=== PATIENT | female | born 1995 | race Caucasian/White ===

== ENCOUNTER 2017-02-03 16:49 | Emergency (ER) | payer OTHER ==
--- NOTE | 2017-02-03 17:28 | UC ---
Knee Pain HPI - HPI Summary HPI Summary: 6 days of right knee pain, without a history of trauma. Had pain for 2 days, then was aware of swelling, which has decreased since she began use of ice. Has been using a crutch for support. Has pain at rest, as well as with weight bearing. Going downstairs is painful. Has a past history of left knee patellar dislocation 3 years ago. Remote history of left ankle fracture. 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 NO fever, rash, or other symptoms of illness. 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 - here with mom Hx Last Menstrual Period: 01/23/17 Onset/Duration: Gradual Onset, Lasting Days - 6 Severity Initially: Moderate Severity Currently: Moderate Pain Intensity: 8 Pain Scale Used: 0-10 Numeric Character: Aching Aggravating Factor(s): Movement, Weight Bearing, Prolonged Standing, Stairs Alleviating Factor(s): Rest, Cold Associated Signs And Symptoms: Positive: Swelling Able to Bear Weight: Yes - Allergies/Home Medications Allergies/Adverse Reactions: Allergies Allergy/AdvReac Type Severity Reaction Status Date / Time Azithromycin [From Zithromax] Allergy Hives Verified 02/03/17 17:24 Home Medications: Home Medications Bisoprolol Fumarate [Bisoprolol Fumarate-] 2.5 mg PO BEDTIME 02/03/17 [History Confirmed 02/03/17] Dicyclomine HCl 20 mg PO AC PRN 02/03/17 [History Confirmed 02/03/17] Lisinopril/HCTZ 10/12.5(NF) [Zestoretic 10/12.5(NF)] 1 tab PO DAILY 02/03/17 [ History Confirmed 02/03/17] Loratadine [Claritin 10 MG CAP] 10 mg PO DAILY 02/03/17 [History Confirmed 02/03] Omeprazole 40 mg PO DAILY 02/03/17 [History Confirmed 02/03/17] Sertraline* [Zoloft*] 50 mg PO DAILY 02/03/17 [History Confirmed 02/03/17] traZODone TAB* [Desyrel TAB*] 50 mg PO BEDTIME PRN 02/03/17 [History Confirmed 02/03/17] PMH/Surg Hx/FS Hx/Imm Hx - Additional Past Medical History Additional PMH: obesity Cardiovascular History Of: Reports: Hypertension Respiratory History Of: Reports: Asthma - INFANCY - Surgical History Surgical History: Yes Surgery Procedure, Year, and Place: WISDOM TEETH EXTRACTIONS - Family History Known Family History: Positive: Cardiac Disease - uncle and father, Hypertension , Other - mother has rheumatoid arthritis - Social History Occupation: Student - [employer] Alcohol Use: None Substance Use Type: None Smoking Status (MU): Never Smoked Tobacco Review of Systems Constitutional: Negative Skin: Negative Eyes: Negative ENT: Negative Respiratory: Negative Cardiovascular: Other - controlled hypertension. Gastrointestinal: Negative Genitourinary: Negative Motor: Decreased ROM Neurovascular: Negative Musculoskeletal: Arthralgia Neurological: Negative Psychological: Anxious All Other Systems Reviewed And Are Negative: Yes Physical Exam Triage Information Reviewed: Yes Appearance: Pain Distress - mild to moderate, antalgic gait sparing right knee. , Obese Vital Signs: Initial Vital Signs Temp 97.6 F 02/03/17 17:15 Pulse 81 02/03/17 17:15 Resp 18 02/03/17 17:15 BP 121/68 02/03/17 17:15 Pulse Ox 98 02/03/17 17:15 Vital Signs Reviewed: Yes Eye Exam: Normal Neck exam: Normal Respiratory: Positive: Lungs clear, Normal breath sounds Cardiovascular: Positive: RRR, No Murmur Musculoskeletal: Positive: Strength Intact, ROM Limited @ - right knee; active flexion to 90 degrees with pain., Other: - + patellar apprehension sign Possibly small effusion, no warmth or redness. Tenderness to light palpation throughout, but primarily with patellar movement. Negative Lachmann's, negative MacMurray Neurological: Positive: Alert, Muscle Tone Normal Psychological Exam: Other - mildly anxious, decreased eye contact. Knee Pain Course/Dx - Course Course Of Treatment: ice and acetaminophen, advised needs strengthening and PT - Differential Dx/Diagnosis Differential Diagnosis/HQI/PQRI: Bursitis, Contusion, Sprain, Strain, Tendonitis Provider Diagnoses: right knee strain/patello-femoral syndrome. Discharge - Discharge Plan Condition: Stable Disposition: HOME Patient Education Materials: Knee Pain (ED) Additional Instructions: I suggest that you ice the knee for 15 minutes every 4 hours or so over the weekend. Use acetaminphone 650mg up to 4 times daily for control of pain. I suspect that you strained the knee even though you cannot recall an injury. The exam is not suggestiive of an inflammatory knee condition, such as Lyme disease or inflammatory arthritis. Begin a course of physical therapy for knee strengthening. This can help a good deal with pain control.
[2017-02-03 18:16] VITALS: BP 121/68
== END 2017-02-03 18:22 | disposition home or self-care (01) ==
LOC: UCCORT 16:49
DX: S86.911A Strain of unspecified muscle(s) and tendon(s) at lower leg level, right leg, initial encounter (principal); X58.XXXA Exposure to other specified factors, initial encounter; Y93.9 Activity, unspecified; Y92.9 Unspecified place or not applicable; I10 Essential (primary) hypertension; E66.9 Obesity, unspecified; Z88.1 Allergy status to other antibiotic agents
CPT/HCPCS: 99211; G0463